=== PATIENT | female | born 1965 | race Caucasian/White ===

== ENCOUNTER 2016-08-20 15:30 | Emergency (ER) | payer OTHER ==
[~2016-08-20] VITALS: Ht 170.2 cm; Wt 131.0 kg
[~2016-08-20 15:30] MED LIST: CYCL10TA9 PO; HYDR-4003 PO; ONDA4TAB6 PO; OXYC1TAB24 PO
[2016-08-20 15:41] VITALS: BP 140/80; PULSE 82; RESP 18; O2SAT 95
== END 2016-08-20 18:54 | disposition left against medical advice (07) ==
LOC: SED 15:30
DX: Z53.21 Procedure and treatment not carried out due to patient leaving prior to being seen by health care provider (principal)

== ENCOUNTER 2016-08-21 20:03 | Emergency (ER) | payer OTHER ==
[~2016-08-21] VITALS: Ht 170.2 cm; Wt 131.4 kg
[2016-08-21 20:17] VITALS: BP 116/83; PULSE 85; RESP 18; O2SAT 95
--- NOTE | 2016-08-21 20:37 | ED.REPORT ---
HPI-Abd Pain F 40 and Over Date of Service Aug 21, 2016 ED Provider: Jesse Garcia MD Patient is a 51 year old female who presents to the ED with RLQ abdominal pain that began yesterday. She describes the pain as cramping, similar to "what you experience with contractions". Patient reports pain with ambulation and movement. The patient presented to the ED yesterday, but LWOBs after waiting in the ED for several hours. Patient states that she had a large bowel movement while waiting "with everything coming out". Her abdominal pain improved after this bowel movement, but was still persistent. She reports decreased PO intake since that time, but she was able to eat a small amount of pasta. The patient reports increased abdominal pain since eating dinner. Last PO intake at 7pm. The patient has not had any diarrhea today and now reports the sensation of constipation. She reports some associated low back pain and pain around her tailbone. Patient has previously had a cholecystectomy and a tubal ligation. Patient reports decreased urination but denies fever or dysuria. Patient has an appointment with her PCP in [place] tomorrow. Patient took Prilosec prior to arrival, which did not improve her symptoms. Nursing Notes Stated Complaint: RIGHT SIDE ABDOMINAL/BACK PAIN Chief Complaint: Female Abdominal Pain Nursing Notes Reviewed: Yes Allergies: Coded Allergies: Penicillins (Verified Allergy, Unknown, 08/20/16) amoxicillin (Verified Allergy, Unknown, 08/20/16) ampicillin (Verified Allergy, Unknown, 08/20/16) codeine (Verified Adverse Reaction, Intermediate, Agitation, 08/20/16) Scheduled PRN Cyclobenzaprine (Cyclobenzaprine) 10 Mg Tablet 10 MG PO TID PRN PRN Spasm Hydrocodone-Acetaminophen 5-325 mg (Hydrocodone-Acetaminophen 5-325 mg) 1 Each Tablet 1-2 TABLET PO Q4H PRN PRN For Pain Ondansetron (Zofran) 4 Mg Tablet 4 MG PO Q4H PRN PRN For Nausea oxyCODONE-Acetaminophen 5-325 mg (oxyCODONE-Acetaminophen 5-325 mg) 1 Each Tablet 1-2 TAB PO Q6H PRN PRN For Pain General Time Seen by MD: 20:35 Chief Complaint Abdominal pain, Diarrhea moderate Hx Obtained From: Patient Arrived By: Walk-in Sudden in Onset?: No Onset Occurred: Yesterday Symptom Duration: Since onset Progression since Onset: Gradually worsening Location: : Abdomen lower Quality: Cramping Severity: Current: Moderate Severity: Maximum: Severe Recent Healthcare: No recent doctor visit, No recent hospitalization Similar Sx Previous: No Past Medical History Past Medical History Hypothyroidism Chronic back and hip pain postmenopausal hypertension, not medicated Reports: Asthma, Hyperlipidemia Past Surgical History Reports: Cholecystectomy Reports: Tubal ligation Family History Grandmother: fatal stroke Father: fatal [place] in his 60's Mother: COPD Reports: Coronary artery disease Smoking History Former Smoker Social History Alcohol Use: Denies alcohol use Drug Use: Denies drug use Other Social History: Good social support, Local resident Ambulatory Status Independent Review of Systems Constitutional: Denies: Chills, Fever GI: Reports: Abdominal pain, Constipation, Diarrhea, Denies: Nausea, Vomiting Female: Reports: Urination decreased, Denies: Dysuria Complete sys rev & neg: except as marked. Physical Exam Vital Signs Vital Signs (First) Date Time Temp Pulse Resp B/P Pulse Ox O2 Delivery O2 Flow Rate FiO2 08/21/16 20:17 36.4 85 18 116/83 95 Room Air Initial VS: Reviewed Head / Eyes: Atraumatic, Normocephalic, PERRL ENT: Conjunctiva normal, No scleral icterus Neck: Supple, Full range of motion Extremities: Vascular intact, Neuro intact Skin: Warm, Dry, No cyanosis Neurologic: Alert, Oriented, Nonfocal Psychiatric: Mood/affect normal, Behavior normal, Normal thought content General/Constitutional: Awake, Alert, No acute distress Appearance / Presentation: Positive: Obese Respiratory / Chest: Breath sounds NL, Breath sounds = bilat, No respiratory distress, No rales, No rhonchi, No wheezing Cardiovascular: Heart rate NL, Regular rhythm, Heart sounds NL, No gallop, No murmurs, No rubs Abdomen: Soft Tenderness/Guarding/Rebound: Positive: Guarding involuntary, Tender RLQ..., Negative: Tender RUQ... Bowel Sounds / Distention: Positive: Bowel sounds hypoactive Back: Painless range of motion Interpretation & Diagnostics Lab Results Interpretation Result Diagram: 08/21/16203908/21/162039 Test 08/21/16 20:40 08/21/16 22:30 White Blood Count 5.9th/mm3 (3.8-10.1) Red Blood Count 4.26mil/mm3 (3.90-5.20) Hemoglobin 13.7g/dL (12.0-15.6) Hematocrit 40.4% (35.0-46.0) Mean Corpuscular Volume 94.8fL (81-100) Mean Corpuscular Hemoglobin 32.2pg (27.0-35.0) Mean Corpuscular Hemoglobin Concent 33.9% (32.0-37.0) Red Cell Distribution Width 13.3% (12.3-15.4) Platelet Count 202bil/L (150-400) Neutrophils (%) (Auto) 61.8% (40-74) Lymphocytes (%) (Auto) 28.6% (14-46) Monocytes (%) (Auto) 8.1% (4-12) Eosinophils (%) (Auto) 1.0% (0-5) Basophils (%) (Auto) 0.3% (0-3) Hold Purple Top Tube Received (Received) Hold Blue Top Tube Received (Received) Sodium Level 142mEq/L (134-144) Potassium Level 3.8mEq/L (3.5-5.2) Chloride Level 104mEq/L (97-108) Carbon Dioxide Level 24mmol/L (18-29) Blood Urea Nitrogen 22mg/dL (6-24) Creatinine 0.88mg/dL (0.57-1.00) Estimat Glomerular Filtration Rate 97mL/min (>59) Glucose Level 106mg/dL (60-99) Calcium Level 9.5mg/dL (8.5-10.1) Magnesium Level 2.0mg/dL (1.6-2.6) Total Bilirubin 0.3mg/dL (0.0-1.2) Aspartate Amino Transf (AST/SGOT) 20U/L (0-50) Alanine Aminotransferase (ALT/SGPT) 21U/L (0-32) Alkaline Phosphatase 63U/L (25-150) Total Protein 7.5g/dL (6.4-8.4) Albumin 4.2g/dL (3.4-5.0) Lipase 26U/L (13-60) Hold Red Top Tube Received (Received) Hold [place] Top Tube Received (Received) Hold [place] Top Tube Received (Received) Urine Color Yellow (YELLOW) Urine Appearance Hazy (CLEAR,HAZY) Urine pH 5.0 (5.0-8.0) Urine Specific [place] 1.010 (1.003-1.035) Urine Protein Negativemg/dL (NEG,TRACE) Urine Glucose (UA) Negativemg/dL (NEGATIVE) Urine Ketones Negativemg/dL (NEGATIVE) Urine Occult Blood Negative (NEGATIVE) Urine Nitrite Negative (NEGATIVE) Urine Bilirubin Negative (NEGATIVE) Urine Urobilinogen Normalmg/dL (NORMAL) Urine Leukocyte Esterase Negative (NEGATIVE) Urine RBC 0-2/hpf (0-2) Urine WBC 6-10/hpf (0-5) Urine Epithelial Cells Many/hpf (NONE-MOD) Urine Crystals None seen (NONE SEEN) Urine Bacteria Moderate/hpf (NONE-FEW) Urine Hyaline Casts None/lpf (NONE) Urine Granular Casts None seen (NONE SEEN) Urine Waxy Casts None seen (NONE SEEN) Urine Red Blood Cell Casts None seen (NONE SEEN) Urine White Blood Cell Casts None seen (NONE SEEN) Urine Mucus None seen (None Seen) Urine Trichomonas None seen (NONE SEEN) Urine Yeast None (NONE SEEN) Urinalysis Comment Urine Culture Reflexed Indicated CT Abd / Pelvis Interpretation IMPRESSION: 1. No definite acute intra-abdominal abnormality to correlate with patient's pain symptoms. Specifically, no evidence of appendicitis. 2. Indistinct margins redemonstrated on the uncinate process of the pancreas. Given similar appearance compared to prior study, findings likely represent sequelae of prior inflammatory changes. Dictated by: Angel Peña M.D. on 08/21/2016 at 22:09 Approved by: Angel Peña M.D. on 08/21/2016 at 22:09 Interpretation / Wet Read by: Interpret - Radiologist Re-Eval/Medical Decision Source of Hx: Old records Re-Evaluation/Progress #1: Time of Eval: 22:34 Patient Status: Condition improved Re-Evaluation/Progress Note: Rechecked the patient. She was informed that her labs and CT scan were normal. Awaiting urine. This is likely a viral gastroenteritis. Will give her water and recheck her. Re-Evaluation/Progress #2: Time of Eval: 23:49 Patient Status: Condition improved, Drinking well without N/V Re-Evaluation/Progress Note: Rechecked the patient, who is improved and tolerated PO in the ED. Patient understands and agrees with the plan to be discharged home. Discharge instructions and follow-up discussed. All questions were addressed. Return to the ED warnings given. Counseled Regarding: Diagnosis, Lab results, Need for follow-up, When/why to return to ED Discharge & Departure Primary Impression: Gastroenteritis Additional Impression: Abdominal pain Abdominal location: lower abdomen Qualified Code: R10.30 - Lower abdominal pain, unspecified Disposition: Home Discharge Condition All VS Reviewed: Yes Condition: Stable Patient Instructions: Gastroenteritis (ED) Additional Instructions: Emergency department evaluation today included interview, examination, review of old records, CT scan of your abdomen, and laboratory evaluation. Your evaluation was reassuring. Take Zofran as needed for nausea. Take Hydrocodone/ APAP as prescribed for pain. Follow-up with your doctor in the next week. Return to the emergency department if you developed any new or worsening symptoms. Referrals: OTHER,PHYSICIAN (PCP) Thiagoibmarj Attestation Portions of this note were transcribed by Anna Vasquez. I, Dr. Garcia personally performed the history, physical exam and medical decision-making; I reviewed and confirmed the accuracy of the information in the transcribed note. Signed by: May Montejo, 08/21/2016 [id number] copies to: JAMIE,PHYSICIAN Jesse Garcia MD Aug 21, 2016 20:37 Anna Vasquez Aug 21, 2016 20:48
[2016-08-21] MEDS ORDERED: 0.9% Sodium Chloride 1,000 ML IV ONE (20:49)
[2016-08-21] MEDS ORDERED: Ondansetron 2 mg/mL 2 mL Inj IVPUSH PRN (20:50)
[2016-08-21 20:56] LABS: BASOPHILS % (AUTO) 0.3 % (0-3); MONOCYTES % (AUTO) 8.1 % (4-12); Mean Corpuscular Hemoglobin 32.2 pg (27.0-35.0); Mean Corpuscular Volume 94.8 fL (81-100); NEUTROPHILS % (AUTO) 61.8 % (40-74); Platelet Count 202 bil/L (150-400)
[2016-08-21] MEDS: HYDROmorphone 0.5 mg/0.5 mL iSecure Syringe IVPUSH PRN ×2 (21:02→23:09)
--- NOTE | 2016-08-21 22:10 | DRSVH ---
PROCEDURE: CT ABDOMEN AND PELVIS WITH CONTRAST ([id number]) INDICATIONS: RLQ abdominal pain TECHNIQUE: After the administration of oral and intravenous contrast, 5 mm thick sections acquired from the diap hragms to the symphysis. 5 mm thick coronal and sagittal reformats were performed. For radiation do se reduction, the following was used: automated exposure control, adjustment of mA and/or kV accordi ng to patient size. COMPARISON: [facility], CT, CT KUB, 10/04/2015, 10:03. FINDINGS: Image quality: Excellent. ABDOMEN: Lung bases: There is mild dependent atelectasis. Heart size is normal. Solid organs: Liver and spleen are normal in size and enhancement. Gallbladder is surgically absent . Biliary system is non-dilated. There are indistinct margins redemonstrated along the uncinate pro cess of the pancreas without a discrete mass identified. No pancreatic duct dilatation. No adrenal nodules. Kidneys are normal in size and enhancement, without hydronephrosis. Peritoneum and bowel: Stomach, small bowel, and colon loops are normal in caliber and wall thickness . The appendix is normal in appearance. No free fluid or air. Nodes and vessels: No retroperitoneal or mesenteric adenopathy. Aorta and inferior vena cava are no rmal in caliber. Miscellaneous: No ventral hernias. PELVIS: Genitourinary: Bladder wall thickness is normal. Miscellaneous: No inguinal hernias or adenopathy. Bones: No suspicious bony lesions. No vertebral body compression fractures. IMPRESSION: 1. No definite acute intra-abdominal abnormality to correlate with patient's pain symptoms. Specifi ale, no evidence of appendicitis. 2. Indistinct margins redemonstrated on the uncinate process of the pancreas. Given similar appeara nce compared to prior study, findings likely represent sequelae of prior inflammatory changes. Dictated by: Angel Peña M.D. on 08/21/2016 at 22:09 Approved by: Angel Peña M.D. on 08/21/2016 at 22:09
[2016-08-21 23:02] VITALS: BP 128/82; PULSE 69; O2SAT 96
[2016-08-21] MEDS ORDERED: _Ondansetron ODT 4 mg Tablet PO PRN (23:05)
[2016-08-21] MEDS ORDERED: _HYDROcodone/APAP 5-325 mg Tablet PO PRN (23:05)
[2016-08-21 23:45] LABS: APPEARANCE,URINE HAZY (CLEAR,HAZY); COLOR,URINE YELLOW (YELLOW); OCCULT BLOOD,URINE NEGATIVE (NEGATIVE); UROBILINOGEN,URINE NORMAL (NORMAL)
[2016-08-22 00:31] VITALS: BP 122/84; PULSE 86; RESP 20; O2SAT 99
== END 2016-08-22 00:34 | disposition home or self-care (01) ==
LOC: SED 20:03
DX: K52.9 Noninfective gastroenteritis and colitis, unspecified (principal); E78.5 Hyperlipidemia, unspecified; I10 Essential (primary) hypertension; Z90.49 Acquired absence of other specified parts of digestive tract; Z87.891 Personal history of nicotine dependence; Z88.0 Allergy status to penicillin; Z88.1 Allergy status to other antibiotic agents; Z88.5 Allergy status to narcotic agent
CPT/HCPCS: 36415; 74177; 80053; 81000; 83690; 83735; 85025; 87086; 87088; 96361; 96374; 96375; 96376; 99285; J1170; J2405; J7030; Q9967

== ENCOUNTER 2016-09-10 09:32 | Emergency (ER) | payer OTHER ==
[~2016-09-10] VITALS: Ht 170.2 cm; Wt 131.4 kg
[2016-09-10 09:36] VITALS: BP 147/87; PULSE 77; RESP 18; O2SAT 98
--- NOTE | 2016-09-10 09:38 | ED.REPORT ---
HPI-General Illness Date of Service Sep 10, 2016 ED Provider: James Osorio MD 51 year old female with hypothyroidism presents to the ER via EMS complaining of a "panic attack". This morning she has been experiencing intermittent episodes of SOB, chest pain, dizziness, shaking, weakness, and difficulty walking. Associated symptoms include insomnia last night, and "hallucinations". Recently she started taking dicyclomine for abdominal pain. She attributes her symptoms to starting dicyclomine. She reports that her symptoms have now resolved. The symptoms are similar to previous panic attacks. She is without any suicidal ideation. She takes Wellbutrin for depression and has been taking this for several months. She has not changed her dose Wellbutrin. She takes levothyroxine for hypothyroidism and reports that her TSH was last normal less than 1 month ago. She has no cardiac history and had no exertional symptoms. Nursing Notes Stated Complaint: PANIC ATTACK Chief Complaint: General Complaint Nursing Notes Reviewed: Yes Allergies: Coded Allergies: Penicillins (Verified Allergy, Unknown, 08/20/16) amoxicillin (Verified Allergy, Unknown, 08/20/16) ampicillin (Verified Allergy, Unknown, 08/20/16) codeine (Verified Adverse Reaction, Intermediate, Agitation, 08/20/16) Scheduled PRN Cyclobenzaprine (Cyclobenzaprine) 10 Mg Tablet 10 MG PO TID PRN PRN Spasm Hydrocodone-Acetaminophen 5-325 mg (Hydrocodone-Acetaminophen 5-325 mg) 1 Each Tablet 1-2 TABLET PO Q4H PRN PRN For Pain Ondansetron (Zofran) 4 Mg Tablet 4 MG PO Q4H PRN PRN For Nausea oxyCODONE-Acetaminophen 5-325 mg (oxyCODONE-Acetaminophen 5-325 mg) 1 Each Tablet 1-2 TAB PO Q6H PRN PRN For Pain General Time Seen by MD: 09:37 Chief Complaint Other (Panic Attack) Hx Obtained From: Patient Arrived By: Ambulance Sudden in Onset?: Yes Onset Occurred: Just prior to arrival Symptom Duration: Since onset Associated with: Reports: Chest pain, Dizziness, Shortness of breath, Weakness , Denies: Fever Past Medical History Past Medical History Hypothyroidism Chronic back and hip pain postmenopausal hypertension, not medicated Reports: Asthma, Hyperlipidemia Past Surgical History Reports: Cholecystectomy Reports: Tubal ligation Family History Grandmother: fatal stroke Father: fatal [place] in his 60's Mother: COPD Reports: Coronary artery disease Smoking History Former Smoker Social History Alcohol Use: Denies alcohol use Drug Use: Denies drug use Other Social History: Good social support, Local resident Ambulatory Status Independent Review of Systems Full Review of Systems Constitutional: Denies: Chills, Fever Respiratory: Reports: Shortness of breath, Denies: Non-productive cough Cardiovascular: Reports: Chest pain GI: Denies: Nausea, Vomiting Neurologic: Reports: Dizziness, Lightheaded, Problem walking, Shaking, Spinning sensation, Weakness Psychiatric: Reports: Hallucinations, visual, Insomnia Complete sys rev & neg: except as marked. Physical Exam Vital Signs Vital Signs Date Time Temp Pulse Resp B/P Pulse Ox O2 Delivery O2 Flow Rate FiO2 09/10/16 11:15 67 16 123/61 95 Room Air 09/10/16 09:36 37.3 77 18 147/87 98 Room Air Initial VS: Reviewed Head / Eyes: Atraumatic, Normocephalic, PERRL Neck: Supple, Non-tender, Full range of motion Extremities: Vascular intact, Neuro intact, No swelling, No tenderness Skin: Warm, Dry, No cyanosis General/Constitutional: Awake, Alert, Well appearing, Well developed, Well nourished Distress / Hydration: Positive: Distress moderate Behavior: Positive: Anxious ENT: Airway patent, Pharynx NL Mouth: Positive: Mucous membranes dry Respiratory / Chest: Breath sounds NL, No respiratory distress, No rales, No rhonchi, No wheezing Cardiovascular: Heart rate NL, Regular rhythm, Heart sounds NL, Cap refill not delayed, Peripheral circulation NL Re-Eval/Medical Decision Med Decision/Clinical Course 51 year old female with hypothyroidism presents to the ER via EMS complaining of a "panic attack". This morning she has been experiencing intermittent episodes of SOB, chest pain, dizziness, shaking, weakness, and difficulty walking. Associated symptoms include insomnia last night, and "hallucinations". Recently she started taking dicyclomine for abdominal pain. She attributes her symptoms to starting dicyclomine. She reports that her symptoms have now resolved. The symptoms are similar to previous panic attacks. She is without any suicidal ideation. She takes Wellbutrin for depression and has been taking this for several months. She has not changed her dose Wellbutrin. She takes levothyroxine for hypothyroidism and reports that her TSH was last normal less than 1 month ago. She has no cardiac history and had no exertional symptoms. Emergency department the patient is afebrile with stable vital signs in no apparent distress. Her presentation is not suggestive of an acute coronary syndrome. The constellation of symptoms is suggestive of anxiety/panic attack and her presentation today is similar to previous panic attacks. She has not had any major cardiac risk factors and I do not feel that cardiac workup is indicated given her history that is overwhelmingly suggestive of panic attack. I discussed this with the patient and she is in agreement with this. She does not have any recent major motor embolus risk factors and examination is not revealing of any signs or symptoms of DVT. We have opted to forego pulmonary embolism workup. She was treated with oral Ativan and had improvement in her symptoms. At this time, I feel she is appropriate for discharge home. She is not significantly decompensated from a psychiatric perspective. The patient was seen and evaluated by emergency department pediatric social worker provided with resources. We feel that she is appropriate for discharge home. Follow-up and return precautions were reviewed in detail she verbalized understanding and agreement with the plan. Source of Hx: Old records Time of Eval: 10:06 Re-Evaluation/Progress Note: Discussed plan to discharge. Patient is amenable to the plan. Return precautions given. All other questions addressed. Counseled Regarding: Diagnosis, Need for follow-up, When/why to return to ED Discharge & Departure Primary Impression: Panic attack Additional Impressions: Hypothyroidism Hypothyroidism type: unspecified Qualified Code: E03.9 - Hypothyroidism, unspecified Shortness of breath Chest pain Chest pain type: unspecified Qualified Code: R07.9 - Chest pain, unspecified Generalized weakness Disposition: Home Discharge Condition All VS Reviewed: Yes Condition: Stable Additional Instructions: Thank you for seeking care at emergency room. It is difficult for us to make definitive diagnoses in the ED but we believe that you are experiencing a panic attack. Our primary goal today in the ED was to evaluate you for any life-threatening conditions. Your evaluation was reassuring. You should follow-up with your primary doctor in the next week, get your TSH checked at that time, and discuss Wellbutrin use with your doctor. Consider ceasing your dicyclomine. You should return to the ED immediately if you develop worsening shortness of breath, chest pain, nausea, profuse sweating, or any other concerning signs or symptoms. Thank you for letting us partake in your care today. Referrals: OTHER,PHYSICIAN (PCP) Scribe Attestation Portions of this note were transcribed by Parviz Cobb. I, Dr. Osorio, personally performed the history, physical exam and medical decision-making; I reviewed and confirmed the accuracy of the information in the transcribed note. Signed by: May Santos, 09/10/2016 and 10:10 James Osorio MD Sep 10, 2016 09:38 PARVIZ COBB Sep 10, 2016 10:10
[2016-09-10] MEDS ORDERED: LORazepam 1 mg Tablet PO ONE (10:10)
[2016-09-10 11:15] VITALS: BP 123/61; PULSE 67; RESP 16; O2SAT 95
== END 2016-09-10 11:17 | disposition home or self-care (01) ==
LOC: EDUNIT# 09:32 → EDBD 09:32 → SED 10:17
DX: F41.0 Panic disorder [episodic paroxysmal anxiety] (principal); E03.9 Hypothyroidism, unspecified; R53.1 Weakness; J45.909 Unspecified asthma, uncomplicated; E78.5 Hyperlipidemia, unspecified; I10 Essential (primary) hypertension; Z87.891 Personal history of nicotine dependence; Z88.0 Allergy status to penicillin; Z88.5 Allergy status to narcotic agent

== ENCOUNTER 2017-05-10 13:43 | Emergency (ER) | payer OTHER ==
[~2017-05-10] VITALS: Ht 170.2 cm; Wt 127.3 kg
[2017-05-10 13:46] VITALS: BP 152/67; PULSE 78; RESP 16; O2SAT 96
--- NOTE | 2017-05-10 13:57 | ED.REPORT ---
HPI-URI / Cough / Cold Date of Service May 10, 2017 ED Provider: History of Present Illness: 52-year-old female here for cough for weeks now. In the beginning of her illness she also had a sore throat which has resolved. She is coughing up tiny amounts of yellow sputum. She does have asthma and been using her inhalers which do help, she does not take oral or inhaled steroids regularly.. She does feel like she needs a breathing treatment now. No fever. She does feel short of breath. Pain on her right side of her lung when she lies on the right side Nursing Notes Stated Complaint: POSS BRONCHITIS/ASTHMA Chief Complaint: Respiratory Complaints Nursing Notes Reviewed: Yes Allergies: Coded Allergies: Penicillins (Verified Allergy, Unknown, 05/10/17) amoxicillin (Verified Allergy, Unknown, 05/10/17) ampicillin (Verified Allergy, Unknown, 05/10/17) codeine (Verified Adverse Reaction, Intermediate, Agitation, 05/10/17) Scheduled PRN Benzonatate (Tessalon Perle) 100 Mg Capsule 100 MG PO TID PRN PRN For Cough 1-2 tabs po tid prn cough Cyclobenzaprine (Cyclobenzaprine) 10 Mg Tablet 10 MG PO TID PRN PRN Spasm Guaifenesin/Codeine Phosphate (Guaifen-Codeine 100-10 mg/5 ml) 120 Ml Liquid 120 ML PO TID PRN PRN For Cough Hydrocodone-Acetaminophen 5-325 mg (Hydrocodone-Acetaminophen 5-325 mg) 1 Each Tablet 1-2 TABLET PO Q4H PRN PRN For Pain Ondansetron (Zofran) 4 Mg Tablet 4 MG PO Q4H PRN PRN For Nausea oxyCODONE-Acetaminophen 5-325 mg (oxyCODONE-Acetaminophen 5-325 mg) 1 Each Tablet 1-2 TAB PO Q6H PRN PRN For Pain General Time Seen by MD: 13:51 Chief Complaint Cough, non-productive Hx Obtained From: Patient Onset Occurred: More than a week ago... (3 weeks) Symptom Duration: Constant Severity: Current: No pain currently Severity: Maximum: No pain Context: Immunization Status General: All up to date Recent Healthcare: No recent doctor visit Similar Sx Previous: Yes Past Medical History Past Medical History Notes: asthma Past Medical History Hypothyroidism Chronic back and hip pain postmenopausal hypertension, not medicated Reports: Asthma, Hyperlipidemia Past Surgical History Reports: Cholecystectomy Reports: Tubal ligation Family History Grandmother: fatal stroke Father: fatal [place] in his 60's Mother: COPD Reports: Coronary artery disease Smoking History Former Smoker Social History Alcohol Use: Denies alcohol use Drug Use: Denies drug use Other Social History: Good social support, Local resident Ambulatory Status Independent Review of Systems Basic Review of Systems Cardiovascular: No dyspnea on exertion Musculoskeletal: No extremity swelling, No extremity pain, Full range of motion , Joints NL Psychiatric: Normal thought content Constitutional: Denies: Chills, Fatigue, Fever Ears / Nose / Throat: Denies: Ear drainage bilateral, Earache bilateral, Nasal congestion, Nose bleeding, Throat pain Respiratory: Reports: Dyspnea on exertion, Prod cough, yellow GI: Denies: Nausea, Vomiting Neurologic: Denies: Dizziness, Headache, Lightheaded Complete sys rev & neg: except as marked. Physical Exam Initial Vital Signs Vital Signs (First) Date Time Temp Pulse Resp B/P Pulse Ox O2 Delivery O2 Flow Rate FiO2 05/10/17 13:46 36.0 78 16 152/67 96 Room Air Initial VS: Reviewed, Vital signs normal Head / Eyes: Atraumatic, Normocephalic, PERRL Neck: Supple, Non-tender, Full range of motion Cardiovascular: Regular rate & rhythm, Heart sounds normal, Intact distal pulses Abdomen / GI: Soft, Non-tender, No guarding, No rebound, No distention Back: No CVA tenderness Skin: Warm, Dry, No cyanosis Neurologic: Alert, Oriented, Nonfocal Psychiatric: Mood/affect normal, Behavior normal, Normal thought content Respiratory / Chest: Atraumatic, Breath sounds = bilat, No respiratory distress , No rales, No rhonchi, No retractions, No crepitus Expiratory wheezes noted in the bases bilaterally Interpretation & Diagnostics X-Ray Chest Interpretation Chest Xray Interpretation: PROCEDURE: X-RAY CHEST, TWO VIEWS ([id number]) INDICATIONS: productive cough TECHNIQUE: 2 views of the chest were acquired. COMPARISON: [facility], , XR CHEST 2VW, 01/05/2016, 16:00. FINDINGS: Surgical changes and devices: None. Lungs and pleura: No pleural effusions or pneumothorax. Lungs are clear. Mediastinum: Mediastinal contours are normal. Heart size is normal. Bones and chest wall: No suspicious bony abnormalities. Soft tissues appear unremarkable. IMPRESSION: Source of cough is not found. Re-Eval/Medical Decision Med Decision/Clinical Course Med Decision/Clinical Course: Patient with stated mild improvement after breathing treatment. Lungs sounds similar to prior to breathing treatment, wtih minimal wheeze at bases. Patient states that she is not actually allergic to codeine. She took a prolonged period of time a few years ago released to a burn and towards the end of her treatment at started to make her feel jumpy. She would like to try it again for the cough. pt d/c without inhaled steroid. discussed with pt follow up with pcp in next few days. She can get rx for this if still symptomatic. Discharge & Departure Impression: Primary Impression: Asthma Asthma severity: mild intermittent Asthma complication type: uncomplicated Qualified Code: J45.20 - Mild intermittent asthma, uncomplicated Additional Impression: Upper respiratory infection URI type: unspecified URI Qualified Code: J06.9 - Acute upper respiratory infection, unspecified Disposition: Home Discharge Condition All VS Reviewed: Yes Condition: Stable Patient Instructions: Acute Cough (ED) Additional Instructions: Take cough medicines as discussed as needed. Drink Lots of fluids. Follow up immediately if you gets fevers, shortness of breath or worsening condition. consider inhaled steroid in future Referrals: OTHER,PHYSICIAN (PCP) EDSupervising Provider for APC: Davey Silva MD, Linnea K ARNP May 10, 2017 13:57
[2017-05-10] MEDS ORDERED: Albuterol-Ipratropium 3 mL Inhalation Solution NEB ONE (14:05)
[2017-05-10 14:41] VITALS: PULSE 74; RESP 16; O2SAT 98
--- NOTE | 2017-05-10 15:12 | DRSVH ---
PROCEDURE: X-RAY CHEST, TWO VIEWS ([id number]) INDICATIONS: productive cough TECHNIQUE: 2 views of the chest were acquired. COMPARISON: [facility], CR, XR CHEST 2VW, 01/05/2016, 16:00. FINDINGS: Surgical changes and devices: None. Lungs and pleura: No pleural effusions or pneumothorax. Lungs are clear. Mediastinum: Mediastinal contours are normal. Heart size is normal. Bones and chest wall: No suspicious bony abnormalities. Soft tissues appear unremarkable. IMPRESSION: Source of cough is not found. Dictated by: Markell Valencia M.D. on 05/10/2017 at 15:10 Approved by: Markell Valencia M.D. on 05/10/2017 at 15:10
[2017-05-10] MEDS ORDERED: BENZ-12 PO (15:36)
[2017-05-10] MEDS ORDERED: GUAI120L30 PO (15:37)
[2017-05-10 16:13] VITALS: BP 152/67; PULSE 74; RESP 16; O2SAT 98
== END 2017-05-10 16:14 | disposition home or self-care (01) ==
LOC: SED 13:43
DX: J45.20 Mild intermittent asthma, uncomplicated (principal); J06.9 Acute upper respiratory infection, unspecified; I10 Essential (primary) hypertension; E78.5 Hyperlipidemia, unspecified; E03.9 Hypothyroidism, unspecified; Z87.891 Personal history of nicotine dependence; Z88.0 Allergy status to penicillin; Z88.5 Allergy status to narcotic agent